=== PATIENT | female | born 1995 | race Asian ===

== ENCOUNTER 2016-09-22 18:24 | Emergency (ER) | payer MEDICAID ==
[~2016-09-22] VITALS: Ht 167.6 cm; Wt 91.0 kg
[~2016-09-22 18:24] MED LIST: BUPR-86 PO; CITA20TA5 PO; CITA40TA12 PO; HYDR25TA11 PO; LEVE500T53 PO; PHEN100C PO; QUET25TA5 PO; TRAZ100T15 PO; [UNRECOGNIZED DRUG - OTHER] PO
[2016-09-22] MEDS ORDERED: SODIUM CHLORIDE 0.9% 1,000 ML IV ONE (18:28)
[2016-09-22] MEDS ORDERED: SODIUM CHLORIDE FLUSH 10ML SYR IVF ONE (18:30)
[2016-09-22] MEDS ORDERED: PHEN100C PO (18:42)
[2016-09-22] MEDS ORDERED: PLEASE ENTER HEIGHT AND WEIGHT MC SCH (19:00)
[2016-09-22 19:25] LABS: ASPARTATE AMINO TRANSFERASE 29 U/L (15-37); BLOOD UREA NITROGEN 13 mg/dL (7-18)
[2016-09-22] MEDS ORDERED: FILTER 0.22 MICRON IV ONE (20:00)
[2016-09-22] MEDS ORDERED: PHENYTOIN SODIUM 1,000 MG in SODIUM CHLORIDE 0.9% 100 ML IVPB ONE (20:00)
[2016-09-22 21:18] VITALS: BP 115/59
== END 2016-09-22 21:22 | disposition home or self-care (01) ==
LOC: ED 21:21
DX: G40.909 Epilepsy, unspecified, not intractable, without status epilepticus (principal); F17.200 Nicotine dependence, unspecified, uncomplicated; D49.6 Neoplasm of unspecified behavior of brain; Z88.8 Allergy status to other drugs, medicaments and biological substances
CPT/HCPCS: 36415; 70450; 80053; 80185; 82550; 85025; 93005; 96365; 96375; 99285; J1165